=== PATIENT | female | born 1990 | race Caucasian/White ===

== ENCOUNTER 2018-08-23 16:57 | Inpatient (IN) | payer OTHER, MEDICAID ==
[~2018-08-23] VITALS: Ht 154.9 cm; Wt 91.9 kg
[2018-08-23] MEDS ORDERED: methylPREDNISolone SOD SUCC 125 MG/2 ML VL ONE (17:25)
[2018-08-23] MEDS ORDERED: IPRATROPIUM BROM 0.5 MG/2.5ML INH SOL NEB ONE (17:30)
[2018-08-23] MEDS ORDERED: ALBUTEROL SULF 2.5 MG/0.5ML(0.5%) NEB SOLN HHN ONE (17:30)
[2018-08-23] MEDS ORDERED: methylPREDNISolone SOD SUCC 125 MG/2 ML VL IV ONE ×2 (17:30)
[2018-08-23] MEDS ORDERED: IPRATROPIUM BROM 0.5 MG/2.5ML INH SOL HHN ONE (17:30)
[2018-08-23] MEDS ORDERED: ALBUTEROL SULF 2.5 MG/0.5ML(0.5%) NEB SOLN NEB ONE (17:30)
[2018-08-23] MEDS: MAGNESIUM SULFATE 1GM/100ML 100 ML IV SCH ×2 (18:11→20:06)
[2018-08-23] MEDS ORDERED: MAGNESIUM SULFATE 1GM/100ML 100 ML IV ONE (18:11)
[2018-08-23 19:24] LABS: Basophils # (auto) 0.1 uL; Basophils % (auto) 0.9 % (0.0-2.0); Eosinophils # (auto) 0.5 uL; Eosinophils % (auto) 5.5 % (0.0-7.0); Hematocrit 42.7 % (36.0-46.0); Hemoglobin 14.2 g/dL (12.2-16.2); Lymphocytes # (auto) 2.2 uL; Lymphocytes % (auto) 22.9 % (10.0-50.0); Mean Corpuscular Hemoglobin 29.3 pg (28.0-32.0); Mean Corpuscular Hgb Conc. 33.2 g/dL (32.0-36.0); Mean Corpuscular Volume 88.3 fL (80.0-100.0); Monocytes # (auto) 0.8 uL; Monocytes % (auto) 7.9 % (0.0-12.0); Neutrophils % (auto) 62.8 % (37.0-80.0); Nucleated Red Blood Cells % 0.1 %; Platelet Count (auto) 333 10^3/uL (140-450); Red Blood Cells 4.84 10^6/uL (4.0-5.20); Red Cell Distribution Width 13.3 % (11.8-14.3); White Blood Cell 9.6 10^3/uL (4.4-10.8)
[2018-08-23 19:39] LABS: Alanine Aminotransferase 20 U/L (13-56); Albumin 3.7 g/dL (3.4-5.0); Anion Gap 7 (5-15); Aspartate Aminotransferase 11 U/L (15-37); BUN/Creatinine Ratio 12.1; Blood Urea Nitrogen 11 mg/dL (7-18); Calcium 9.5 mg/dL (8.5-10.1); Carbon Dioxide 25 mmol/L (21-32); Chloride 111 mmol/L (98-107); GFR African American 96 mL/min; GFR Non-African American 79 mL/min; Glucose 89 mg/dL (74-106); Potassium 3.6 mmol/L (3.5-5.1); Sodium 143 mmol/L (136-145)
[2018-08-23 19:45] LABS: Alkaline Phosphatase 92 U/L (45-117); Bilirubin, Total 0.2 mg/dL (0.2-1.0); Total Protein 7.1 g/dL (6.4-8.2)
[2018-08-23] MEDS ORDERED: LORazepam 2MG/ML-1ML VIAL IV ONE (20:45)
[2018-08-23] MEDS ORDERED: cefTRIAXone 1GM/50ML D5W 50 ML IV ONE (23:15)
[2018-08-23 23:43] VITALS: BP 109/45
[2018-08-23] MEDS ORDERED: HYDROcodone-ACET 5/325MG TAB PO PRN (23:45)
[2018-08-23] MEDS ORDERED: ACETAMINOPHEN 500 MG TAB PO PRN (23:45)
[2018-08-23] MEDS ORDERED: ONDANSETRON HCL 4 MG/2 ML VIAL IV PRN (23:45)
[2018-08-23] MEDS ORDERED: LORazepam 0.5 MG TAB PO PRN (23:45)
[2018-08-24] MEDS: MORPHINE SULF INJ 2 MG/ML SYRINGE 1ML IV PRN ×4 (00:11→20:50)
--- NOTE | 2018-08-24 00:30 | NUR ---
MS admit from ER BRANDEN CERVANTES Kenna admitted to [facility] after SBAR received. Patient oriented to CHASE MEZA, RN primary RN, unit, room, bed, and unit policies regarding patient care and visiting hours. Patient weighed by bedscale and encouraged to call if they need something. All questions and concerns addressed, patient verbalized understanding. Patient is a 27 year old, alert oriented and awake, ambulatory to the bathroom, c/o pain to back (just received morphine from the ER), wheezing to bilateral upper and lower lobes, on room air saturating at 96%, no distress noted at this time, having some anxiety, will give ativan as ordered. Bed placed in lowest position, and call light within reach.
[2018-08-24] MEDS: AZITHROMYCIN 500MG/ 250ML 250 ML IV SCH ×2 (01:39→23:33)
[2018-08-24] MEDS ORDERED: HYDR-4924 PO (04:41)
[2018-08-24] MEDS ORDERED: DOXY100C2 PO (04:41)
[2018-08-24] MEDS ORDERED: IPRAAER6 IN (04:41)
[2018-08-24] MEDS ORDERED: MEDR400I IM (04:41)
[2018-08-24 05:00] VITALS: BP 97/57
[2018-08-24] MEDS: PANTOPRAZOLE 40 MG TAB PO SCH (05:30)
[2018-08-24] MEDS: IPRATROPIUM BROM 0.5 MG/2.5ML INH SOL NEB SCH ×5 (06:06→22:06)
[2018-08-24] MEDS: ALBUTEROL SULF 2.5 MG/0.5ML(0.5%) NEB SOLN NEB SCH ×5 (06:06→22:05)
[2018-08-24] MEDS: BUDESONIDE (INHALATION) 0.5 MG/2 ML NEB NEB SCH ×2 (06:17→18:45)
[2018-08-24 06:30] LABS: Basophils # (auto) 0 uL; Basophils % (auto) 0.1 % (0.0-2.0); Calcium 8.7 mg/dL (8.5-10.1); Eosinophils # (auto) 0 uL; Hematocrit 40.4 % (36.0-46.0); Hemoglobin 13.2 g/dL (12.2-16.2); Lymphocytes # (auto) 0.8 uL; Lymphocytes % (auto) 6.8 % (10.0-50.0); Mean Corpuscular Hgb Conc. 32.8 g/dL (32.0-36.0); Mean Corpuscular Volume 88.3 fL (80.0-100.0); Monocytes # (auto) 0.3 uL; Monocytes % (auto) 2.8 % (0.0-12.0); Neutrophils # (auto) 10.5 uL; Neutrophils % (auto) 90.3 % (37.0-80.0); Platelet Count (auto) 333 10^3/uL (140-450); Potassium 4.2 mmol/L (3.5-5.1); Red Blood Cells 4.57 10^6/uL (4.0-5.20); Red Cell Distribution Width 13.6 % (11.8-14.3); White Blood Cell 11.6 10^3/uL (4.4-10.8)
[2018-08-24 06:32] LABS: BUN/Creatinine Ratio 15.4
--- NOTE | 2018-08-24 07:20 | NUR ---
Opening Shift Note Assumed care of patient, awake and alert. No S/S of distress/SOB or pain, however wheezing is noted on auscultation of breath sounds. Instructed on POC-continue IV antibiotics, IV steroid as ordered. Patient informed to call for assist PRN, will continue to monitor for changes Q1hr and PRN.
[2018-08-24 08:26] VITALS: BP 96/52
[2018-08-24] MEDS: cefTRIAXone 1GM/50ML D5W 50 ML IV SCH ×2 (08:45→10:00)
[2018-08-24] MEDS: methylPREDNISolone SOD SUCC 40 MG/ML VL IV SCH ×2 (10:27→20:51)
[2018-08-24 12:27] VITALS: BP 96/56
--- NOTE | 2018-08-24 14:12 | NUR ---
Paged RT, patient wants breathing treatment.
--- NOTE | 2018-08-24 14:29 | NUR ---
Paged Dr. Lee, informed MD that patient's breath sound is wheezing a lot right now. MD gave an order for Atrovent 1 mg neb and 20 mg Albuterol neb. RT who is already at bedside, giving the 1400 nebulization, informed of new order. Continue to monitor patient.
[2018-08-24] MEDS ORDERED: IPRATROPIUM BROM 0.5 MG/2.5ML INH SOL NEB ONE (14:30)
[2018-08-24] MEDS ORDERED: ALBUTEROL SULF 2.5 MG/0.5ML(0.5%) NEB SOLN NEB ONE (14:30)
[2018-08-24] MEDS ORDERED: LORazepam 2MG/ML-1ML VIAL IV ONE (15:30)
--- NOTE | 2018-08-24 15:30 | NUR ---
PER DR. CARLSON PLACED PT ON BIPAP DUE TO INCREASED WOB. PT IS IN DISTRESS AND IS COMPLAINING OF CHEST TIGHTNESS. 20MG ALBUTEROL GIVEN WITH 1MG ATROVENT.
--- NOTE | 2018-08-24 15:40 | NUR ---
Report given to EMA Martin. Patient is being upgraded to Tele and would need to be given Metoprolol 5mg IV once on Telemetry. Patient is now on Bipap as ordered. She is alert and oriented. RT at bedside.
[2018-08-24] MEDS ORDERED: METOPROLOL TARTRATE 1MG/1ML-5ML VIAL IV ONE ×2 (15:45→16:00)
--- NOTE | 2018-08-24 15:50 | NUR ---
Open Note/ Patient Upgraded to Tele Patient upgraded to Tele, telemetry box #23 reading sinus rhythm 143. Received report on patient, awake and sitting up in bed. Patient has BiPAP machine on, crying and restless. Patient states "I can't do this". Talked through breathing techniques to help calm patient down. Patient states the BiPAP machine is what gives her anxiety. Respiratory therapist at bedside took off BiPAP machine after performing ABG. Patient's ABG levels within normal range. Patient states relief after taking BiPAP machine off. One time dose of Metoprolol 5m IV given as well as patient's PRN pain medication. Oxygen saturation within normal range. Will continue to monitor.
--- NOTE | 2018-08-24 16:10 | NUR ---
REMOVED PT FROM BIPAP PER PT'S REQUEST. PT IS NOT DEMI. BIPAP. PT WILL BE ANTI ANXIETY MEDS.
[2018-08-24 17:01] VITALS: BP 127/60
--- NOTE | 2018-08-24 19:25 | NUR ---
Opening Shift Note Received report from phu Martin RN. Assumed care of patient, awake and alert. No S/S of distress/SOB or pain. Instructed on POC and to call for assist PRN, will continue to monitor for changes Q1hr and PRN. Bed placed in lowest position, and call light within reach.
[2018-08-24 21:30] VITALS: BP 115/55
[2018-08-25] MEDS ORDERED: LORA-654 PO (00:54)
[2018-08-25] MEDS ORDERED: LORA-654 GT (00:54)
[2018-08-25] MEDS: LORazepam 0.5 MG TAB PO PRN ×3 (01:30→18:28)
--- NOTE | 2018-08-25 01:30 | NUR ---
IV insertion IV access obtained, via clean sterile technique by inserting 22 gauge catheter at right hand after first attempt. IV secured properly. No trauma to site. Patient tolerated well.
--- NOTE | 2018-08-25 01:30 | NUR ---
IV removal IV to left ac infiltrated. DC'd with clean sterile technique, catheter fully intact. Pressure dressing applied to site. Patient tolerated well.
[2018-08-25 05:00] VITALS: BP 115/61
[2018-08-25] MEDS: PANTOPRAZOLE 40 MG TAB PO SCH (06:06)
[2018-08-25] MEDS: IPRATROPIUM BROM 0.5 MG/2.5ML INH SOL NEB SCH ×4 (06:30→18:26)
[2018-08-25] MEDS: ALBUTEROL SULF 2.5 MG/0.5ML(0.5%) NEB SOLN NEB SCH ×5 (06:31→21:50)
--- NOTE | 2018-08-25 07:40 | NUR ---
Patient in bed, awake, oriented x4. No acute distress noted.
[2018-08-25 09:00] VITALS: BP 101/51
[2018-08-25] MEDS: cefTRIAXone 1GM/50ML D5W 50 ML IV SCH (09:54)
[2018-08-25] MEDS: methylPREDNISolone SOD SUCC 40 MG/ML VL IV SCH ×2 (09:54→21:54)
--- NOTE | 2018-08-25 10:05 | NUR ---
Jose Angel Nair said patient is not stable for transfer to [place] today, will discharge the patient home tomorrow.
--- NOTE | 2018-08-25 10:05 | NUR ---
Jose Angel Nair at bedside. Patient has wheezing, anxious. MD to discharge the patient tomorrow.
--- NOTE | 2018-08-25 10:19 | NUR ---
Ativan PO given for anxiety.
[2018-08-25] MEDS: BUDESONIDE (INHALATION) 0.5 MG/2 ML NEB NEB SCH ×2 (11:10→18:26)
[2018-08-25 13:00] VITALS: BP 101/54
--- NOTE | 2018-08-25 13:10 | NUR ---
Patient is wearing her T-shirt, Telemetry off.
--- NOTE | 2018-08-25 14:08 | NUR ---
Called [place] Behavioral Analyst Marika ([phone]). Phone on [employer]. Left a message to call back.
--- NOTE | 2018-08-25 15:15 | NUR ---
[facility] Marika dempsey. Marika made aware patient is not stable to be transferred today, Jose Nair to discharge the patient home tomorrow. Marika to call the [facility]. Addendum: 08/25/18 at 1520 by Arlyn Murdock RN called back
[2018-08-25] MEDS: MORPHINE SULF INJ 2 MG/ML SYRINGE 1ML IV PRN (15:21)
--- NOTE | 2018-08-25 15:21 | NUR ---
Patient stated her back aches, pain level at 7/10 at this time. Morphine Sulf 1 mg given for pain as ordered.
[2018-08-25 17:00] VITALS: BP 109/56
[2018-08-25 20:00] VITALS: BP 114/60
[2018-08-25] MEDS ORDERED: EPINEPHrine HCL 0.5 ML NEB ONE (20:55)
--- NOTE | 2018-08-25 20:55 | NUR ---
PAGED TO PT ROOM FOR SOB, PT ON 3LPM NC SPO2 95%, PT HAVING INCREASED WOB AND AUDIBLE STRIDOR AND EXP WHEEZES. PT STATED AIRWAYS FEELS LIKE ITS CLOSING. RR 26, PT CAN BARELY MAKE SENTENCE. RN NOTIFIED AND RACEPINEPHRINE NEBULIZED ORDERED. PT TOLERATING WELL. WILL CONTINUE TO MONITOR PT.
--- NOTE | 2018-08-25 21:00 | NUR ---
ASSESSMENT OF SOB PATIENT STATING HAVING INCREASED SOB--PATIENT OBSERVED SITTING UP IN BED WITH LABORED BREATHING, WHEEZING IS HEARD WITHOUT STETHOSCOPE. RESPIRATORY THERAPY PAGED--PATIENT PLACED ON 2LPM OXYGEN AND IN HIGH FOWLERS
[2018-08-25] MEDS ORDERED: methylPREDNISolone SOD SUCC 125 MG/2 ML VL ONE (21:09)
--- NOTE | 2018-08-25 21:10 | NUR ---
RESPIRATORY THERAPY ASSESSED PATIENT--INCREASED WHEEZING AND INFLAMMATION NOTED PER RT--PAGED HOSPITALIST
[2018-08-25] MEDS ORDERED: EPINEPHrine HCL 0.5 ML NEB NEB ONE (21:15)
[2018-08-25] MEDS ORDERED: methylPREDNISolone SOD SUCC 125 MG/2 ML VL IV ONE (21:15)
--- NOTE | 2018-08-25 21:15 | NUR ---
SPOKE WITH HOSPITALIST, Sandra STOREY NP, RECEIVED NEW ORDER FOR RACENEPHRINE TREATMENT AND SOLUMEDROL 125MG IV ---ORDERS NOTED AND CARRIED OUT--CONTINUING TO MONITOR
[2018-08-25 21:30] VITALS: BP 114/60
--- NOTE | 2018-08-25 21:36 | NUR ---
PAGED HOSPITALIST PATIENT REASSESSED--CONTINUES TO SOB AND WHEEZING--RT SUGGEST ANOTHER ALBUTEROL TREATMENT
[2018-08-25] MEDS ORDERED: ALBUTEROL SULF 2.5 MG/0.5ML(0.5%) NEB SOLN ONE (21:50)
[2018-08-25] MEDS ORDERED: LORazepam 2MG/ML-1ML VIAL ONE (21:50)
[2018-08-25] MEDS ORDERED: ALBUTEROL SULF 2.5 MG/0.5ML(0.5%) NEB SOLN NEB ONE (22:00)
[2018-08-25] MEDS ORDERED: LORazepam 2MG/ML-1ML VIAL IV ONE (23:00)
[2018-08-25] MEDS: AZITHROMYCIN 500MG/ 250ML 250 ML IV SCH (23:55)
[2018-08-26] MEDS: IPRATROPIUM BROM 0.5 MG/2.5ML INH SOL NEB SCH ×4 (00:45→10:08)
[2018-08-26] MEDS: ALBUTEROL SULF 2.5 MG/0.5ML(0.5%) NEB SOLN NEB SCH ×3 (02:42→10:08)
[2018-08-26] MEDS: MORPHINE SULF INJ 2 MG/ML SYRINGE 1ML IV PRN (04:36)
[2018-08-26] MEDS: LORazepam 0.5 MG TAB PO PRN (04:37)
[2018-08-26 05:00] VITALS: BP 122/60
[2018-08-26] MEDS: PANTOPRAZOLE 40 MG TAB PO SCH (05:43)
--- NOTE | 2018-08-26 08:30 | NUR ---
AWAKENED FOR ASSESSMENT AND BREAKFAST. SKIN W/D, NO RESP DISTRESS. IV SECURE CLEAN AND DRY. DENIES HX OF SCHIZOPHRENIA BUT DOES HAVE ANXIETY. SAID HER EPISODE FROM LAST NIGHT WAS NOT ANXIETY BUT TRUE RESP DISTRESS. FEELS MUCH BETTER NOW.
[2018-08-26 09:00] VITALS: BP 107/58
[2018-08-26] MEDS: BUDESONIDE (INHALATION) 0.5 MG/2 ML NEB NEB SCH (10:08)
--- NOTE | 2018-08-26 10:10 | NUR ---
DR. ARANDA AND THIS RN AT BEDSIDE FOR EXAM AND TEACHING. SHE IS AWARE SHE IS GOING HOME AND PLEASED ABOUT IT. WE TALKED ABOUT HER ANXIETY AND THAT SHE SHOULD TAKE HER MEDS ROUTINELY AND HAVE HER PMD TRY OTHER MEDS. REMINDED NOT TO STOP HER ATIVAN ABRUPTLY
[2018-08-26] MEDS: methylPREDNISolone SOD SUCC 40 MG/ML VL IV SCH (10:33)
[2018-08-26] MEDS: cefTRIAXone 1GM/50ML D5W 50 ML IV SCH (10:37)
[2018-08-26 11:17] VITALS: BP 127/60
--- NOTE | 2018-08-26 11:45 | NUR ---
IV DC FROM LT HAND; CATH INTACT, 2X2 COBAN DRESSING APPLIED. NO REDNESS OR DRAINAGE
--- NOTE | 2018-08-26 11:50 | NUR ---
Regular Discharge Please follow up with your primary care physician WE WERE UNABLE TO MAKE AN APPT FOR YOU. THE OFFICE WOULD NOT MAKE ONE UNTIL THEY REC'D MEDICAL RECORDS. ENCOURAGED TO MAINTAIN MED REGIMEN TO PREVENT FLARES AND DRINK MORE WATER. AMB (PER PT REQUEST) WITH FRIEND OUT OF DEPT. NO RESP DISTRESS NOTED. SKIN W/D. TELE #23 CLEANED AND RETURNED TO [facility]
== END 2018-08-26 11:50 | disposition home or self-care (01) | DRG 202 ==
LOC: EDBD 16:57 → ER 17:03 → EAST 23:26 → TELE-EAST 08-24 16:00
PROVIDERS: ADMIT Nurse Practitioner Acute Care; ATTEND Family Medicine
DX: J45.902 Unspecified asthma with status asthmaticus (principal); J98.11 Atelectasis; M79.7 Fibromyalgia; E66.9 Obesity, unspecified; F32.9 Major depressive disorder, single episode, unspecified; F17.200 Nicotine dependence, unspecified, uncomplicated; F41.9 Anxiety disorder, unspecified; J20.9 Acute bronchitis, unspecified; G43.909 Migraine, unspecified, not intractable, without status migrainosus; Z68.38 Body mass index [BMI] 38.0-38.9, adult
CPT/HCPCS: 36415; 36600; 71045; 80048; 80053; 82805; 83605; 83735; 84484; 84702; 85025; 87040; 93005; 94640; 94644; 94645; 94660; 94761; 96365; 96366; 96375; G0378; J0696

== ENCOUNTER 2018-09-08 18:16 | Inpatient (IN) | payer OTHER, MEDICAID ==
[~2018-09-08] VITALS: Ht 162.6 cm; Wt 92.5 kg
[~2018-09-08 18:16] MED LIST: DOXY100C2 PO; HYDR-4924 PO; IPRAAER6 IN; LORA-654 PO; MEDR400I IM
[2018-09-08] MEDS ORDERED: IPRATROPIUM BROM 0.5 MG/2.5ML INH SOL HHN ONE (18:30)
[2018-09-08] MEDS ORDERED: methylPREDNISolone SOD SUCC 125 MG/2 ML VL IV ONE (18:30)
[2018-09-08] MEDS ORDERED: ALBUTEROL SULF 2.5 MG/0.5ML(0.5%) NEB SOLN HHN ONE (18:30)
[2018-09-08 19:00] LABS: Basophils # (auto) 0.1 uL; Basophils % (auto) 0.8 % (0.0-2.0); Eosinophils # (auto) 0.6 uL; Eosinophils % (auto) 6.7 % (0.0-7.0); Hematocrit 43.8 % (36.0-46.0); Hemoglobin 14.5 g/dL (12.2-16.2); Lymphocytes # (auto) 2.4 uL; Mean Corpuscular Hemoglobin 29.7 pg (28.0-32.0); Mean Corpuscular Hgb Conc. 33.2 g/dL (32.0-36.0); Mean Corpuscular Volume 89.5 fL (80.0-100.0); Monocytes # (auto) 0.8 uL; Monocytes % (auto) 9.4 % (0.0-12.0); Neutrophils # (auto) 4.7 uL; Neutrophils % (auto) 55.1 % (37.0-80.0); Nucleated Red Blood Cells % 0.1 %; Platelet Count (auto) 287 10^3/uL (140-450); Red Blood Cells 4.89 10^6/uL (4.0-5.20); Red Cell Distribution Width 13.7 % (11.8-14.3); White Blood Cell 8.6 10^3/uL (4.4-10.8)
[2018-09-08 19:19] LABS: Alanine Aminotransferase 27 U/L (13-56); Albumin 3.7 g/dL (3.4-5.0); Anion Gap 11 (5-15); Blood Urea Nitrogen 9 mg/dL (7-18); Calcium 8.9 mg/dL (8.5-10.1); Carbon Dioxide 22 mmol/L (21-32); Chloride 109 mmol/L (98-107); Glucose 94 mg/dL (74-106); Magnesium 2.4 mg/dL (1.6-2.6); Potassium 3.6 mmol/L (3.5-5.1); Sodium 142 mmol/L (136-145)
[2018-09-08 19:25] LABS: Alkaline Phosphatase 74 U/L (45-117); Aspartate Aminotransferase 17 U/L (15-37); BUN/Creatinine Ratio 10.8; Bilirubin, Total 0.3 mg/dL (0.2-1.0); GFR African American 107 mL/min; GFR Non-African American 88 mL/min; Total Protein 7.3 g/dL (6.4-8.2)
[2018-09-08] MEDS ORDERED: LORazepam 2MG/ML-1ML VIAL IV ONE ×2 (19:30→20:45)
[2018-09-08] MEDS ORDERED: ONDANSETRON HCL 4 MG/2 ML VIAL IV PRN (21:30)
[2018-09-08] MEDS ORDERED: ACETAMINOPHEN 500 MG TAB PO PRN (21:30)
[2018-09-08] MEDS ORDERED: TEMAZEPAM 15 MG CAP PO PRN (21:30)
--- NOTE | 2018-09-08 22:30 | NUR ---
Telemetry admit from ER BRANDEN CERVANTES admitted to Telemetry unit after SBAR received. Patient oriented to Hanane Healy RN primary RN, unit, room, bed, and unit policies regarding patient care and visiting hours. Patient now on continuous telemetry monitoring, tele box # 47 and telemetry reading on arrival to unit is STachy. Patient placed on bedside oxygen at 3 Lpm/NC, weighed by bedscale and encouraged to call if they need something. All questions and concerns addressed, patient verbalized understanding, will continue to monitor Note: []
[2018-09-08] MEDS: IPRATROPIUM BROM 0.5 MG/2.5ML INH SOL NEB SCH (22:49)
[2018-09-08] MEDS: ALBUTEROL SULF 2.5 MG/0.5ML(0.5%) NEB SOLN NEB SCH (22:49)
--- NOTE | 2018-09-08 23:05 | NUR ---
Nasal swab done for MRSA per protocol
[2018-09-08 23:14] VITALS: BP 104/77
[2018-09-08] MEDS: methylPREDNISolone SOD SUCC 40 MG/ML VL IV SCH (23:25)
[2018-09-08] MEDS: FAMOTIDINE 20 MG TAB PO SCH (23:26)
[2018-09-08 23:41] VITALS: BP 108/57
[2018-09-09] VITALS (10 sets, daily range): BP systolic 94–135; BP diastolic 51–68
[2018-09-09] MEDS: IPRATROPIUM BROM 0.5 MG/2.5ML INH SOL NEB SCH ×6 (02:17→22:05)
[2018-09-09] MEDS: ALBUTEROL SULF 2.5 MG/0.5ML(0.5%) NEB SOLN NEB SCH ×6 (02:17→22:04)
[2018-09-09] MEDS: methylPREDNISolone SOD SUCC 40 MG/ML VL IV SCH ×3 (06:03→21:48)
--- NOTE | 2018-09-09 06:13 | NUR ---
Patient complained of generalized pain, moaning and crying. Attempted to give Tylenol as ordered but per patient it doesn't do anything. Paged hospitalist, awaiting call back Paged also RT for breathing treatment, will continue care
[2018-09-09] MEDS ORDERED: MORPHINE SULF INJ 2 MG/ML SYRINGE 1ML IV ONE (06:30)
--- NOTE | 2018-09-09 06:30 | NUR ---
Hospitalist Nitish called back, received an order for 1x Morphine 2mg IV, acknowledged and read back, will carry out order
--- NOTE | 2018-09-09 06:35 | NUR ---
Patient having SOB and wheezes, refusing O2 at this time, O2 Sat 90% in room air. Paged RT 3x for breathing treatment
[2018-09-09] MEDS: LORazepam 2MG/ML-1ML VIAL IV PRN ×3 (06:44→18:45)
--- NOTE | 2018-09-09 06:54 | NUR ---
RT NOTE: PT PLACED ONTO BIPAP AFTER BEING CALLED FOR STAT BREATHING TX. PT HAD INCREASED WOB WITH AUDIBLE INSP/EXP WHEEZING. AFTER INITIAL SCHEDULED TX GIVEN PT STILL IN DISTRESS SO HOSPITALIST WAS CALLED @ 0718 AND GAVE ORDER FOR ALBUTEROL/ATROVENT 08/13 TX. RN HAS BEEN BEDSIDE GIVING MEDS WELL. PT DID NOT TOLERATE BIPAP FOR MORE THAN 5MIN AND TOOK IT OFF. PT HAS GIVEN THE OK TO INTUBATE IF THE NEED ARISES. WILL CONTINUE TO MONITOR.
--- NOTE | 2018-09-09 07:00 | NUR ---
Hospitalist paged to get another dose of breathing treatment, per RT recommendation. Hospitaljames Talbert called back and spoke to RT Endorsed care to EMA Manzano
[2018-09-09] MEDS ORDERED: ALBUTEROL SULF 2.5 MG/0.5ML(0.5%) NEB SOLN NEB ONE ×2 (07:15→09:15)
[2018-09-09] MEDS ORDERED: IPRATROPIUM BROM 0.5 MG/2.5ML INH SOL NEB ONE (07:15)
[2018-09-09] MEDS ORDERED: ALBUTEROL SULF 2.5 MG/0.5ML(0.5%) NEB SOLN ONE ×2 (07:19→09:18)
[2018-09-09] MEDS ORDERED: IPRATROPIUM BROM 0.5 MG/2.5ML INH SOL ONE (07:19)
--- NOTE | 2018-09-09 07:20 | NUR ---
Opening Note Assumed care of patient. RT is at bedside, patient is receiving breathing treatment at this time. Patient is sitting high fowlers in bed O2 saturation in 93%. She is A&O x4, and call light is within reach. Bed is in low, locked position. Will continue to monitor patient Q1hr and PRN.
--- NOTE | 2018-09-09 08:10 | NUR ---
Patient sitting in tripod position in bed Patient was placed back on 3 L of oxygen. She was able to sit back in bed. Patient refuses BIPAP at this time, she states "you would have to knock me out to put that on, it makes me claustrophobic." She just received dual breathing treatments @ 0715. She is more relaxed at this time after placing O2 nasal cannula. But has audible wheezes, and lungs sounds showing wheezes anterior and posteriorly in the upper lobes, diminished in the posterior lobes. Discussed POC with patient. Will continue to monitor Q1h and PRN.
--- NOTE | 2018-09-09 08:45 | NUR ---
I faxed clinical information to [facility] including ER notes, H&P, MD progress notes, current vitals, current labs and current medication list.
--- NOTE | 2018-09-09 09:08 | NUR ---
Patient feeling SOB RT paged to bedside, assessed patient lung sounds, respiratory rate, and O2 saturation. Patient states "I am tired," she has subcostal retractions and is having a hard time moving air in and out. outsole leveler, Yuliet notified. Dr. Fierro notified.
--- NOTE | 2018-09-09 09:12 | NUR ---
Dr. Fierro at bedside, RT at bedside.
[2018-09-09] MEDS ORDERED: methylPREDNISolone SOD SUCC 40 MG/ML VL IV ONE ×2 (09:30→10:45)
--- NOTE | 2018-09-09 09:35 | NUR ---
Progress Note Patient is awake and alert. She is getting tired, she still has mild subcostal retractions, she has not slept all night. Continuous breathing treatment is going. O2 sat is 97, HR 147. Patient is comfortable at this time. Will continue to monitor Q1h and PRN. Call light within reach, discussed when to call the nurse.
--- NOTE | 2018-09-09 10:25 | NUR ---
RT NOTE: PT PLACED ONTO CONTINUOUS TX AND ABG DRAWN PER DR KHAN ORDERS. PT STILL HAS AUDIBLE INSPIRATORY/EXPIRATORY WHEEZING AFTER TX. PT SEEMS TO BE IN LESS DISTRESS BUT STATES THAT SHE STILL IS HAVING SEVERE DIFFICULTY AND THAT SHE IS TIRED. RN IS AWARE. WILL CONTINUE TO MONITOR CLOSELY.
--- NOTE | 2018-09-09 10:28 | NUR ---
RT NOTE: 1000 BREATHING TX WAS HELD DUE TO PT CURRENTLY BEING ON HER CONTINUOUS TX. WILL CONTINUE TO MONITOR.
[2018-09-09] MEDS ORDERED: BUDESONIDE (INHALATION) 0.5 MG/2 ML NEB NEB ONE (10:45)
[2018-09-09] MEDS ORDERED: LEVOFLOXACIN 500MG 100 ML IV ONE (10:45)
[2018-09-09] MEDS: FAMOTIDINE 20 MG TAB PO SCH ×2 (11:22→21:48)
[2018-09-09] MEDS: MAGNESIUM SULFATE 1GM/100ML 100 ML IV SCH ×2 (11:31→12:44)
--- NOTE | 2018-09-09 11:35 | NUR ---
Patient Transferred to [facility] Report given to EMA Aj [facility] nurse at bedside.
[2018-09-09] MEDS ORDERED: ALBUTEROL SULF 2.5 MG/0.5ML(0.5%) NEB SOLN NEB SCH (12:00)
--- NOTE | 2018-09-09 12:44 | NUR ---
ASSUMED CARE OF PATIENT AT 1135 AFTER BEDSIDE REPORT OBTAINED FROM TELE NURSE, PATIENT PLACED ON BEDSIDE CHIEF OPERATIONS OFFICER. A/O X4 WITH HR 130S-140S SINUS TACHYCARDIA, O2 VIA NC AT 3 LPM WITH SPO2 94% AND ABOVE, RR HIGH 20'S WITH ACCESSORY MUSCLE USE AND AUDIBLE WHEEZES, BP 96/59, C/O PRODUCTIVE COUGH WITH MODERATE AMOUNT GREEN SPUTUM BUT HAS NOT PRODUCED ANY THAT RN HAS WITNESSED. RT GAVE PULMICORT BREATHING TREATMENT ORDERED. DR JEFF AT BEDSIDE AROUND 1200. RN EDUCATED PATIENT ON NEED FOR BEDREST AND USE OF BEDPAN IF NEEDS ARISE DUE TO HR/SOB AND PATIENT VERBALIZED UNDERSTANDING. PATIENT MOTHER JAZLYN AT BEDSIDE. ATIVAN GIVEN AT THIS TIME DUE TO ANXIETY.
[2018-09-09 13:47] LABS: Basophils # (auto) 0 uL; Basophils % (auto) 0.1 % (0.0-2.0); Eosinophils # (auto) 0 uL; Hematocrit 42.3 % (36.0-46.0); Hemoglobin 13.7 g/dL (12.2-16.2); Lymphocytes # (auto) 0.4 uL; Lymphocytes % (auto) 3.9 % (10.0-50.0); Mean Corpuscular Hemoglobin 29.1 pg (28.0-32.0); Mean Corpuscular Hgb Conc. 32.4 g/dL (32.0-36.0); Mean Corpuscular Volume 89.7 fL (80.0-100.0); Monocytes # (auto) 0.2 uL; Monocytes % (auto) 1.6 % (0.0-12.0); Neutrophils # (auto) 10.7 uL; Neutrophils % (auto) 94.4 % (37.0-80.0); Platelet Count (auto) 285 10^3/uL (140-450); Red Blood Cells 4.72 10^6/uL (4.0-5.20); Red Cell Distribution Width 13.8 % (11.8-14.3); White Blood Cell 11.4 10^3/uL (4.4-10.8)
--- NOTE | 2018-09-09 13:54 | NUR ---
REQUESTING TO BE INTUBATED, HR 130'S SINUS TACHYCARDIA, RR 20, STATING SHE "CANNOT BREATH", SPO2 92% ON 3LPM O2 VIA NC, REMAINS IN HIGH FOWLERS AND NO RESPIRATORY DISTRESS NOTED AT THIS TIME. STATES SHE WILL TAKE BIPAP AND BREATHING TREATMENTS ORDERED AT 1400 IN WHICH RT HAS ALREADY BEEN PAGED PER PATIENT REQUEST, AND THEN IF SHE STILL CANNOT BREATH WANTS TO BE INTUBATED. AWARE RN WILL CALL DR JEFF AFTER BIPAP AND BREATHING TREATMENTS. PATIENT THEN STATED "SHE WILL GO SOMEWHERE ELSE AND JUST KILL HERSELF" IF SHE CANNOT GET INTUBATED. RN IN ROOM AND SAFETY MAINTAINED. MOTHER REMAINS IN ROOM WELL. Addendum: 09/09/18 at 1400 by Jean Marie Yepez RN LUNG SOUNDS NOW CLEAR ANTERIORLY IN BILATERAL UPPER LOBES AND DIMINISHED IN BILATERAL BASES, SOLUMEDROL JUST GIVEN ORDERED.
--- NOTE | 2018-09-09 14:03 | NUR ---
SITTING UP IN BED, EATING LUNCH WITHOUT ANY SIGNS OF RESPIRATORY DISTRESS
[2018-09-09 14:05] LABS: Calcium 9.7 mg/dL (8.5-10.1)
--- NOTE | 2018-09-09 15:02 | NUR ---
REQUESTED APPLE JUICE, TEXTING ON CELL PHONE, NO SIGNS/SYMPTOMS OF RESPIRATORY DISTRESS ON 3 LPM O2 VIA NC SPO2 95%, HR 102'S SINUS TACHYCARDIA.
--- NOTE | 2018-09-09 15:35 | NUR ---
REQUESTING PRN BREATHING TREATMENTS, SPOKE WITH RT AND NO ORDER PLACED FOR PRN TREATMENTS AND RT STATED SHE WAS JUST IN HERE FOR SCHEDULED BREATHING TREATMENTS NO TOO LONG AGO, PAGED DR JEFF FOR PRN BREATHING TREATMENT.
--- NOTE | 2018-09-09 15:42 | NUR ---
SPOKE WITH DR RANDEE DR AWARE PATIENT REQUESTING PRN BREATHING TREATMENT, SOME WHEEZING TO RIGHT LUNG AUSCULTATED. PER ALBUTEROL Q3H SCHEDULED ORDER WAS SUPPOSED TO BE PRN, ORDER CHANGED TO PRN AND NEW ORDER RECEIVED FOR ABG NOW. VERIFIED WITH IF HE WOULD LIKE ACCUCHECKS DUE TO SOLUMEDROL MEDICATION BEING GIVEN ORDERED AND NO ACCUCHECKS ORDERED AT THIS TIME. SPO2 95% ON ROOM AIR WITH PATIENT REFUSING TO WEAR ANY OXYGEN DUE TO IT GIVING HER A "HEADACHE".
[2018-09-09] MEDS: ALBUTEROL SULF 2.5 MG/0.5ML(0.5%) NEB SOLN NEB PRN (15:54)
--- NOTE | 2018-09-09 16:30 | NUR ---
URINATED 400 ML CLEAR YELLOW URINE, URINE SAMPLE SENT TO LAB FOR UA ORDER
--- NOTE | 2018-09-09 16:51 | NUR ---
SPOKE WITH DR JEFF, DR NERI LATEST ABG, NEW ORDER TO DOWNGRADE TO TELE FLOOR
[2018-09-09 16:56] LABS: Urine Bacteria FEW /hpf (None Seen); Urine Blood 2+ /uL (Negative); Urine Specific Gravity 1.008 (1.001-1.035); Urine WBC 1 /hpf (0 - 5)
--- NOTE | 2018-09-09 16:58 | NUR ---
WATER CHASER/ICU CHARGE AWARE PATIENT IS DOWNGRADED TO TELE FLOOR PER
--- NOTE | 2018-09-09 16:59 | NUR ---
PATIENT STATED "THE LAST BREATHING TREATMENT HELPED ME A LOT"
--- NOTE | 2018-09-09 19:20 | NUR ---
Opening Shift Note Assumed care of patient, awake and alert. No S/S of distress/SOB or pain. Instructed on POC and to call for assist PRN. Bed in lowest locked position, call light within reach, side rails up x2. Will continue to monitor for changes Q1hr and PRN.
--- NOTE | 2018-09-09 19:55 | NUR ---
Hospitalist paged Pt stating 01/22 pain. Requesting pain medication. Awaiting call back from hospitalist.
--- NOTE | 2018-09-09 20:00 | NUR ---
Hospitalist called back MARIO Caldwell called back. Updated on patient status and reason for call. New orders received and read back for verification. Continue care.
[2018-09-09] MEDS ORDERED: KETOROLAC TROMETH 30 MG/ML 1ML VIAL IV ONE (20:15)
[2018-09-09] MEDS ORDERED: KETOROLAC TROMETH 60MG/2ML VIAL IV ONE (20:45)
[2018-09-09] MEDS: BUDESONIDE (INHALATION) 0.5 MG/2 ML NEB NEB SCH (22:05)
[2018-09-09] MEDS: MORPHINE SULFATE 4 MG/ML SYR/VIAL IV PRN (23:13)
[2018-09-10] MEDS: IPRATROPIUM BROM 0.5 MG/2.5ML INH SOL NEB SCH ×6 (02:19→22:24)
[2018-09-10] MEDS: ALBUTEROL SULF 2.5 MG/0.5ML(0.5%) NEB SOLN NEB SCH ×6 (02:19→22:24)
[2018-09-10] MEDS: LORazepam 2MG/ML-1ML VIAL IV PRN ×3 (02:23→18:15)
[2018-09-10 05:16] VITALS: BP 107/42
[2018-09-10] MEDS: BUDESONIDE (INHALATION) 0.5 MG/2 ML NEB NEB SCH ×3 (06:04→18:15)
[2018-09-10] MEDS: methylPREDNISolone SOD SUCC 40 MG/ML VL IV SCH ×3 (06:11→21:54)
[2018-09-10] MEDS: MORPHINE SULFATE 4 MG/ML SYR/VIAL IV PRN ×4 (06:11→21:55)
[2018-09-10 06:34] LABS: Basophils # (auto) 0 uL; Eosinophils # (auto) 0 uL; Hemoglobin 13.3 g/dL (12.2-16.2); Lymphocytes # (auto) 0.9 uL; Lymphocytes % (auto) 6.4 % (10.0-50.0); Mean Corpuscular Hemoglobin 29.2 pg (28.0-32.0); Mean Corpuscular Hgb Conc. 32.4 g/dL (32.0-36.0); Mean Corpuscular Volume 90.1 fL (80.0-100.0); Monocytes # (auto) 1.2 uL; Monocytes % (auto) 8.8 % (0.0-12.0); Neutrophils # (auto) 11.9 uL; Neutrophils % (auto) 84.8 % (37.0-80.0); Nucleated Red Blood Cells % 0.1 %; Platelet Count (auto) 287 10^3/uL (140-450); Red Blood Cells 4.55 10^6/uL (4.0-5.20); Red Cell Distribution Width 14.2 % (11.8-14.3); White Blood Cell 14.1 10^3/uL (4.4-10.8)
[2018-09-10 06:40] LABS: Calcium 8.8 mg/dL (8.5-10.1); Magnesium 2.8 mg/dL (1.6-2.6); Potassium 4.3 mmol/L (3.5-5.1)
[2018-09-10 06:45] LABS: BUN/Creatinine Ratio 17.5
--- NOTE | 2018-09-10 07:11 | NUR ---
Opening Shift Note Assumed care of patient, awake and alert. No S/S of distress/SOB or pain on room air. Instructed on POC and to call for assist PRN, will continue to monitor for changes Q1hr and PRN. Bed in low and locked position, rails up x2, no-slip socks on.
[2018-09-10 08:00] VITALS: BP 99/55
[2018-09-10] MEDS ORDERED: LEVOFLOXACIN 500MG 100 ML IV SCH (10:00)
[2018-09-10] MEDS: FAMOTIDINE 20 MG TAB PO SCH ×2 (10:34→21:54)
[2018-09-10 12:00] VITALS: BP 100/42
--- NOTE | 2018-09-10 15:00 | NUR ---
DR JEFF AT BEDSIDE NEW ORDERS ADDED
--- NOTE | 2018-09-10 15:51 | NUR ---
PATIENT REQUESTING TO SHOWER NO LONGER ON TELE MONITORING. ADVISED ON SAFETY PRECAUTIONS TO TAKE AND NEED TO CALL FOR ASSISTANCE. PATIENT VERBALIZES UNDERSTANDING, SUPPLIES PROVIDED.
--- NOTE | 2018-09-10 15:55 | NUR ---
DC TELE RETURNED TO [facility]
[2018-09-10 16:00] VITALS: BP 112/54
[2018-09-10] MEDS: ALBUTEROL SULF 2.5 MG/0.5ML(0.5%) NEB SOLN NEB PRN (20:05)
[2018-09-11] MEDS: IPRATROPIUM BROM 0.5 MG/2.5ML INH SOL NEB SCH ×4 (02:10→13:52)
[2018-09-11] MEDS: ALBUTEROL SULF 2.5 MG/0.5ML(0.5%) NEB SOLN NEB SCH ×4 (02:10→13:52)
[2018-09-11] MEDS: MORPHINE SULFATE 4 MG/ML SYR/VIAL IV PRN (04:22)
[2018-09-11 05:32] VITALS: BP 114/68
[2018-09-11] MEDS: methylPREDNISolone SOD SUCC 40 MG/ML VL IV SCH ×2 (05:59→14:00)
--- NOTE | 2018-09-11 06:14 | NUR ---
Respiratory note: SCHEDULED MED NEB TX NOT GIVEN PT WAS SLEEPING, NO RESP DISTRESS NOTED. PT STATED SHE DID NOT NEED TX AT THIS TIME. HR 70, RR 16, SPO2 99% ON 4L N/C. PT KNOWS TO HAVE RT PAGED IF TX IS NEEDED BEFORE NEXT SCHEDULED TX IS DUE.
--- NOTE | 2018-09-11 06:14 | NUR ---
Respiratory note: DISREGARD NOTE FOR 614, CHARTED ON WRONG PATIENT.
[2018-09-11 08:00] VITALS: BP 118/73
[2018-09-11] MEDS ORDERED: LEVOFLOXACIN 500 MG TAB PO SCH (10:00)
[2018-09-11] MEDS: FAMOTIDINE 20 MG TAB PO SCH (10:03)
[2018-09-11] MEDS: LORazepam 2MG/ML-1ML VIAL IV PRN (10:03)
[2018-09-11 12:00] VITALS: BP 108/58
[2018-09-11 16:00] VITALS: BP 121/59
--- NOTE | 2018-09-11 16:21 | NUR ---
assessment Patient is a 27 year old female who is alert and oriented. Prior to admission patient was homeless and living in her car or with friends. Per patient she will return to her car or to the homeless [facility] that I have offered. Patient has also agreed to [facility] transfer if [facility] wants her back in [facility]. Patients PCP is Dr eLe at the [facility]. Patient has appropriate clothing for the weather and will be given a sack lunch on discharge. Addendum: 09/11/18 at 1631 by Adalgisa CHANCE Amended: Links added.
--- NOTE | 2018-09-11 16:31 | NUR ---
re-assessment Patient signed homeless waiver and it has been placed in patients chart. Addendum: 09/11/18 at 1632 by Adalgisa CHANCE Amended: Links added.
--- NOTE | 2018-09-11 16:49 | NUR ---
Discharge instructions given as ordered. Encourage to follow up with PMD as instructed. All questions and concerns addressed. Patient verbalized understanding. Medication reconciliation form completed and copy given to patient. IV removed with catheter intact, pressure dressing applied. Patient taken ambulated to vehicle with all personal belongings, accompanied by staff and family member. No distress noted at time of departure.
== END 2018-09-11 16:50 | disposition home or self-care (01) | DRG 193 ==
LOC: EDBD 18:16 → ER 18:19 → TELE 21:29 → TELE-WESTW 22:21 → WEST WING 09-10 14:53
PROVIDERS: ADMIT Nurse Practitioner Family; ATTEND Internal Medicine
PROC: 5A09357 Assistance with Respiratory Ventilation, Less than 24 Consecutive Hours, Continuous Positive Airway Pressure (ICD-10-PCS; principal; 2018-09-08)
PROC: 5A09357 Assistance with Respiratory Ventilation, Less than 24 Consecutive Hours, Continuous Positive Airway Pressure (ICD-10-PCS; 2018-09-09)
DX: J18.9 Pneumonia, unspecified organism (principal); J96.00 Acute respiratory failure, unspecified whether with hypoxia or hypercapnia; J45.902 Unspecified asthma with status asthmaticus; E66.9 Obesity, unspecified; F41.9 Anxiety disorder, unspecified; F32.9 Major depressive disorder, single episode, unspecified; E66.01 Morbid (severe) obesity due to excess calories; Z82.49 Family history of ischemic heart disease and other diseases of the circulatory system; Z68.35 Body mass index [BMI] 35.0-35.9, adult; Z88.8 Allergy status to other drugs, medicaments and biological substances; Z88.5 Allergy status to narcotic agent; Z88.0 Allergy status to penicillin; Z91.013 Allergy to seafood
CPT/HCPCS: 36415; 36600; 71045; 80048; 80053; 81001; 82805; 83735; 83880; 84484; 84702; 85025; 87081; 94640; 94644; 94660; 94761; 96374; 96375; 96376; 99291; G0378; J1885; J1956; J2405

== ENCOUNTER 2018-11-01 14:58 | Emergency (ER) | payer OTHER, MEDICAID ==
[~2018-11-01] VITALS: Ht 154.9 cm; Wt 90.7 kg
[~2018-11-01 14:58] MED LIST changes: -LORA-654 PO; +LORA0.5T12 PO
[2018-11-01 15:45] LABS: Urine Bacteria NONE SEEN /hpf (None Seen); Urine Blood Negative /uL (Negative); Urine Mucus FEW (None Seen); Urine Specific Gravity 1.015 (1.001-1.035); Urine WBC 1 /hpf (0 - 5)
[2018-11-01 16:01] LABS: Basophils # (auto) 0.1 uL; Basophils % (auto) 0.6 % (0.0-2.0); Eosinophils # (auto) 0.4 uL; Eosinophils % (auto) 3.2 % (0.0-7.0); Hematocrit 47.4 % (36.0-46.0); Hemoglobin 15.6 g/dL (12.2-16.2); Lymphocytes # (auto) 1.8 uL; Lymphocytes % (auto) 16.2 % (10.0-50.0); Mean Corpuscular Hemoglobin 29.4 pg (28.0-32.0); Monocytes # (auto) 0.8 uL; Monocytes % (auto) 6.7 % (0.0-12.0); Neutrophils # (auto) 8.2 uL; Neutrophils % (auto) 73.3 % (37.0-80.0); Platelet Count (auto) 312 10^3/uL (140-450); Red Blood Cells 5.32 10^6/uL (4.0-5.20); Red Cell Distribution Width 13.5 % (11.8-14.3); White Blood Cell 11.2 10^3/uL (4.4-10.8)
[2018-11-01 16:21] LABS: Albumin 3.8 g/dL (3.4-5.0); Anion Gap 8 (5-15); Aspartate Aminotransferase 13 U/L (15-37); BUN/Creatinine Ratio 10.7; Blood Urea Nitrogen 8 mg/dL (7-18); Calcium 9.2 mg/dL (8.5-10.1); Carbon Dioxide 25 mmol/L (21-32); Chloride 109 mmol/L (98-107); GFR African American 120 mL/min; GFR Non-African American 99 mL/min; Glucose 92 mg/dL (74-106); Lipase 119 U/L (73-393); Magnesium 2.7 mg/dL (1.6-2.6); Potassium 4.1 mmol/L (3.5-5.1); Sodium 142 mmol/L (136-145)
[2018-11-01 16:28] LABS: Alanine Aminotransferase 21 U/L (13-56); Alkaline Phosphatase 82 U/L (45-117); Bilirubin, Total 0.4 mg/dL (0.2-1.0); Total Protein 7.7 g/dL (6.4-8.2)
[2018-11-01] MEDS ORDERED: ALBUTEROL SULF 2.5 MG/0.5ML(0.5%) NEB SOLN NEB ONE ×2 (17:15→20:15)
[2018-11-01] MEDS ORDERED: IPRATROPIUM BROM 0.5 MG/2.5ML INH SOL NEB ONE ×2 (17:15→20:15)
[2018-11-01] MEDS ORDERED: methylPREDNISolone SOD SUCC 125 MG/2 ML VL ONE (17:43)
[2018-11-01] MEDS ORDERED: LORazepam 2MG/ML-1ML VIAL ONE (17:44)
[2018-11-01] MEDS ORDERED: methylPREDNISolone SOD SUCC 125 MG/2 ML VL IV ONE (17:45)
[2018-11-01] MEDS ORDERED: LORazepam 2MG/ML-1ML VIAL IV ONE (17:45)
[2018-11-01 18:46] LABS: Alcohol, Urine < 3.0 mg/dL (0-5); Amphetamine Screen, Urine NEGATIVE (NEGATIVE); Barbiturate Scree,Urine NEGATIVE (NEGATIVE); Benzodiazephine Screen, Urine NEGATIVE (NEGATIVE); Cannabinoid Screen, Urine POSITIVE (NEGATIVE); Cocaine Screen, Urine NEGATIVE (NEGATIVE); Opiate Scree,Urine NEGATIVE (NEGATIVE)
[2018-11-01 18:53] LABS: Phencyclidine Screen, Urine NEGATIVE (NEGATIVE)
[2018-11-01] MEDS ORDERED: SODIUM CHLORIDE 0.9% 1,000 ML IV ONE (20:15)
[2018-11-01] MEDS ORDERED: KETOROLAC TROMETH 15 mg/ml 1ML VL IV ONE (20:15)
[2018-11-01] MEDS ORDERED: ONDANSETRON HCL 4 MG/2 ML VIAL IV ONE (20:15)
[2018-11-01] MEDS ORDERED: MORPHINE SULFATE 4 MG/ML SYR/VIAL IV ONE (21:15)
[2018-11-01 21:55] VITALS: BP 107/59
== END 2018-11-01 21:58 | disposition home or self-care (01) ==
LOC: ER 15:00
DX: K52.9 Noninfective gastroenteritis and colitis, unspecified (principal); J45.909 Unspecified asthma, uncomplicated; J01.00 Acute maxillary sinusitis, unspecified; Z88.6 Allergy status to analgesic agent; Z91.013 Allergy to seafood; Z88.0 Allergy status to penicillin
CPT/HCPCS: 36415; 74176; 80053; 80307; 81001; 81025; 83690; 83735; 84484; 84702; 85025; 94640; 96361; 96374; 96375; 99284; J1885; J2060; J2270; J2405; J2930; J7030; J7611; J7644

== ENCOUNTER 2018-11-11 18:04 | Emergency (ER) | payer OTHER, MEDICAID ==
[~2018-11-11] VITALS: Ht 154.9 cm; Wt 90.7 kg
[2018-11-11 18:14] VITALS: BP 123/81
== END 2018-11-11 22:41 | disposition left against medical advice (07) ==
LOC: ER 18:09
DX: R51 Headache (principal); Z53.21 Procedure and treatment not carried out due to patient leaving prior to being seen by health care provider

== ENCOUNTER 2018-11-21 15:28 | Emergency (ER) | payer OTHER, MEDICAID ==
[~2018-11-21] VITALS: Ht 154.9 cm; Wt 90.7 kg
[2018-11-21] MEDS ORDERED: EPINEPHrine HCL 1 MG/1 ML AMP SC ONE (15:45)
[2018-11-21] MEDS ORDERED: methylPREDNISolone SOD SUCC 125 MG/2 ML VL IM ONE (15:45)
[2018-11-21 16:08] VITALS: BP 105/60
== END 2018-11-21 18:21 | disposition home or self-care (01) ==
LOC: EDBD 15:28 → ER 15:28
DX: T78.1XXA Other adverse food reactions, not elsewhere classified, initial encounter (principal); R07.9 Chest pain, unspecified; Z88.0 Allergy status to penicillin; Z88.8 Allergy status to other drugs, medicaments and biological substances; Z91.013 Allergy to seafood; Z79.899 Other long term (current) drug therapy; X58.XXXA Exposure to other specified factors, initial encounter
CPT/HCPCS: 71045; 96372; 99283; J0171; J2930

== ENCOUNTER 2018-12-22 22:04 | Emergency (ER) | payer OTHER, MEDICAID ==
[~2018-12-22] VITALS: Ht 154.9 cm; Wt 86.2 kg
[2018-12-22 23:11] LABS: Basophils # (auto) 0.1 uL; Basophils % (auto) 0.6 % (0.0-2.0); Eosinophils # (auto) 0.5 uL; Eosinophils % (auto) 3.5 % (0.0-7.0); Hematocrit 41.7 % (36.0-46.0); Hemoglobin 13.7 g/dL (12.2-16.2); Lymphocytes # (auto) 2.1 uL; Lymphocytes % (auto) 16.2 % (10.0-50.0); Mean Corpuscular Hemoglobin 29.1 pg (28.0-32.0); Mean Corpuscular Hgb Conc. 32.8 g/dL (32.0-36.0); Mean Corpuscular Volume 88.9 fL (80.0-100.0); Monocytes # (auto) 0.8 uL; Monocytes % (auto) 6.5 % (0.0-12.0); Neutrophils # (auto) 9.4 uL; Neutrophils % (auto) 73.2 % (37.0-80.0); Platelet Count (auto) 296 10^3/uL (140-450); Red Blood Cells 4.69 10^6/uL (4.0-5.20); Red Cell Distribution Width 13.5 % (11.8-14.3); White Blood Cell 12.8 10^3/uL (4.4-10.8)
[2018-12-22] MEDS ORDERED: MORPHINE SULFATE 4 MG/ML SYR/VIAL ONE (23:31)
[2018-12-22] MEDS ORDERED: ONDANSETRON HCL 4 MG/2 ML VIAL ONE (23:31)
[2018-12-22 23:32] LABS: Albumin 3.5 g/dL (3.4-5.0); BUN/Creatinine Ratio 12.4; Calcium 8.7 mg/dL (8.5-10.1); Potassium 3.7 mmol/L (3.5-5.1)
[2018-12-22 23:35] LABS: Bilirubin, Total 0.2 mg/dL (0.2-1.0)
[2018-12-23 01:04] LABS: Urine Bacteria FEW /hpf (None Seen); Urine Blood Negative /uL (Negative); Urine Hyaline Cast FEW /lpf (0 - 2); Urine Mucus FEW (None Seen); Urine Specific Gravity 1.024 (1.001-1.035); Urine WBC 17 /hpf (0 - 5)
[2018-12-23] MEDS ORDERED: HYDROmorphone HCL 2 MG/ML VL IV ONE (01:15)
[2018-12-23] MEDS ORDERED: IOHEXOL 300 MG/ML 100ML BOTTLE IJ ONE (01:34)
[2018-12-23 04:03] VITALS: BP 122/88
== END 2018-12-23 04:23 | disposition short-term general hospital (02) ==
LOC: EDBD 22:04 → ER 22:06
DX: N39.0 Urinary tract infection, site not specified (principal); J45.909 Unspecified asthma, uncomplicated; Z91.013 Allergy to seafood; Z88.0 Allergy status to penicillin
CPT/HCPCS: 36415; 74177; 80053; 81001; 81025; 82150; 83690; 84702; 85025; 94761; 96374; 99285; J1170; J2270; J2405; Q9967

== ENCOUNTER 2019-01-25 01:23 | Emergency (ER) | payer OTHER, MEDICAID ==
[~2019-01-25] VITALS: Ht 154.9 cm; Wt 89.4 kg
[2019-01-25 03:58] LABS: Basophils # (auto) 0.1 uL; Basophils % (auto) 0.7 % (0.0-2.0); Eosinophils # (auto) 0.4 uL; Hematocrit 45.4 % (36.0-46.0); Hemoglobin 15.3 g/dL (12.2-16.2); Lymphocytes # (auto) 2.7 uL; Lymphocytes % (auto) 19.9 % (10.0-50.0); Mean Corpuscular Hemoglobin 29.5 pg (28.0-32.0); Mean Corpuscular Hgb Conc. 33.8 g/dL (32.0-36.0); Mean Corpuscular Volume 87.3 fL (80.0-100.0); Monocytes % (auto) 7.1 % (0.0-12.0); Neutrophils # (auto) 9.5 uL; Neutrophils % (auto) 69.3 % (37.0-80.0); Platelet Count (auto) 323 10^3/uL (140-450); Red Cell Distribution Width 13.8 % (11.8-14.3); White Blood Cell 13.6 10^3/uL (4.4-10.8)
[2019-01-25 04:15] LABS: Chloride 110 mmol/L (98-107); Potassium 3.6 mmol/L (3.5-5.1); Sodium 140 mmol/L (136-145)
[2019-01-25 04:24] LABS: Alanine Aminotransferase 18 U/L (13-56); Alkaline Phosphatase 81 U/L (45-117); Aspartate Aminotransferase 14 U/L (15-37); BUN/Creatinine Ratio 14.1; Bilirubin, Total 0.4 mg/dL (0.2-1.0); Blood Urea Nitrogen 11 mg/dL (7-18); Calcium 8.6 mg/dL (8.5-10.1); Carbon Dioxide 22 mmol/L (21-32); GFR African American 114 mL/min; GFR Non-African American 94 mL/min; Magnesium 2.3 mg/dL (1.6-2.6); Total Protein 7.7 g/dL (6.4-8.2)
[2019-01-25 04:29] LABS: Glucose 93 mg/dL (74-106)
[2019-01-25 04:37] LABS: Anion Gap 8 (5-15)
[2019-01-25 07:50] LABS: Alcohol, Urine < 3.0 mg/dL (0-5); Amphetamine Screen, Urine NEGATIVE (NEGATIVE); Barbiturate Scree,Urine NEGATIVE (NEGATIVE); Benzodiazephine Screen, Urine NEGATIVE (NEGATIVE); Cannabinoid Screen, Urine POSITIVE (NEGATIVE); Cocaine Screen, Urine NEGATIVE (NEGATIVE); Opiate Scree,Urine NEGATIVE (NEGATIVE); Phencyclidine Screen, Urine NEGATIVE (NEGATIVE)
[2019-01-25 07:51] LABS: Urine Amorphous Crystal FEW /hpf (None Seen); Urine Bacteria FEW /hpf (None Seen); Urine Blood Negative /uL (Negative); Urine Mucus FEW (None Seen); Urine Specific Gravity 1.019 (1.001-1.035); Urine WBC 4 /hpf (0 - 5)
[2019-01-25 10:00] VITALS: BP 109/67
== END 2019-01-25 12:15 | disposition home or self-care (01) ==
LOC: ER 01:25
DX: I47.1 Supraventricular tachycardia (principal); J45.901 Unspecified asthma with (acute) exacerbation; F12.90 Cannabis use, unspecified, uncomplicated; Z88.0 Allergy status to penicillin; Z91.013 Allergy to seafood; Z88.8 Allergy status to other drugs, medicaments and biological substances
CPT/HCPCS: 36415; 71045; 80053; 80307; 81001; 83735; 84443; 84484; 85025; 85379; 93005

== ENCOUNTER 2020-09-12 08:16 | Emergency (ER) | payer MEDICAID, OTHER ==
[~2020-09-12] VITALS: Ht 154.9 cm; Wt 63.5 kg
[~2020-09-12 08:16] MED LIST changes: -LORA0.5T12 PO; +LORA0.5T20 PO
[2020-09-12 08:21] VITALS: BP 110/60
[2020-09-12 08:47] LABS: Basophils # (auto) 0 10 ^3/uL (0-0.2); Basophils % (auto) 0.3 % (0.0-2.0); Eosinophils # (auto) 0 10 ^3/uL (0-0.8); Eosinophils % (auto) 0.3 % (0.0-7.0); Hematocrit 42.4 % (36.0-46.0); Hemoglobin 14.6 g/dL (12.2-16.2); Lymphocytes # (auto) 1.3 10 ^3/uL (0.4-5.4); Lymphocytes % (auto) 10.8 % (10.0-50.0); Mean Corpuscular Hemoglobin 31.2 pg (28.0-32.0); Mean Corpuscular Hgb Conc. 34.3 g/dL (32.0-36.0); Mean Corpuscular Volume 90.9 fL (80.0-100.0); Monocytes # (auto) 0.6 10 ^3/uL (0-1.3); Monocytes % (auto) 5.5 % (0.0-12.0); Neutrophils # (auto) 9.6 10 ^3/uL (1.6-8.6); Neutrophils % (auto) 83.1 % (37.0-80.0); Nucleated Red Blood Cells % 0.1 %; Platelet Count (auto) 354 10^3/uL (140-450); Red Blood Cells 4.67 10^6/uL (4.0-5.20); White Blood Cell 11.6 10^3/uL (4.4-10.8)
[2020-09-12 08:53] LABS: Urine Amorphous Crystal FEW /hpf (None Seen); Urine Bacteria NONE SEEN /hpf (None Seen); Urine Blood Negative /uL (Negative); Urine WBC 5 /hpf (0 - 5)
[2020-09-12] MEDS ORDERED: SODIUM CHLORIDE 0.9% 1,000 ML IV ONE ×2 (09:00)
[2020-09-12] MEDS ORDERED: MORPHINE SULFATE 4 MG/ML SYR/VIAL IV ONE (09:00)
[2020-09-12] MEDS ORDERED: ONDANSETRON HCL 4 MG/2 ML VIAL IV ONE (09:00)
[2020-09-12] MEDS ORDERED: metroNIDAZOLE 500MG/100ML 100 ML IV ONE (09:15)
[2020-09-12] MEDS ORDERED: levoFLOXacin 500MG 100 ML IV ONE (09:15)
[2020-09-12 09:21] LABS: Calcium 9.1 mg/dL (8.5-10.1); Potassium 3.9 mmol/L (3.5-5.1)
[2020-09-12 09:24] LABS: BUN/Creatinine Ratio 20.8
[2020-09-12 09:27] LABS: Bilirubin, Total 0.4 mg/dL (0.2-1.0); Total Protein 7.3 g/dL (6.4-8.2)
== END 2020-09-12 10:12 | disposition left against medical advice (07) ==
LOC: ER 08:16
DX: K52.9 Noninfective gastroenteritis and colitis, unspecified (principal); J45.909 Unspecified asthma, uncomplicated; Z90.89 Acquired absence of other organs; Z88.0 Allergy status to penicillin; Z88.8 Allergy status to other drugs, medicaments and biological substances; Z91.013 Allergy to seafood; Z53.29 Procedure and treatment not carried out because of patient's decision for other reasons
CPT/HCPCS: 36415; 74176; 80053; 81001; 81025; 83605; 83690; 85025; 87040; 99284; J7030; 96360; J1956; J2405; J3490